=== PATIENT | male | born 1980 | race African-American/Black ===

== ENCOUNTER 2023-06-16 03:03 | Inpatient (IN) | payer OTHER ==
[2023-06-16 03:15] VITALS: BMI 59.1
[2023-06-16 05:21] LABS: MCH 23.3 pg (25.7-33.7); MCHC 31.6 g/dl (32.0-35.9); MEAN CELL VOLUME 73.7 fl (80-96); MEAN PLT VOLUME 8.6 fl (7.5-11.1); PLATELET COUNT 613 10^3/uL (134-434); RBC 4.75 M/mm3 (4.00-5.60); RDW 21.1 % (11.9-15.9); WHITE BLOOD COUNT 21.8 K/mm3 (4.0-10.0)
[2023-06-16 05:24] LABS: EPI CELLS >36 /uL (0-25.1); HYALINE CASTS 3 /uL (0-3.1); PH,URINE 5.5 (5.0-8.0); URINE APPEARANCE CLEAR; URINE BACTERIA 7 /uL (0-1359); URINE BILIRUBIN NEGATIVE (NEGATIVE); URINE COLOR YELLOW; URINE GLUCOSE (UA) NEGATIVE (NEGATIVE); URINE KETONE NEGATIVE (NEGATIVE); URINE LEUK ESTERASE NEGATIVE (NEGATIVE); URINE NITRITE NEGATIVE (NEGATIVE); URINE PROTEIN 2+ (NEGATIVE); URINE RBC 35 /uL (0-23.9); URINE UROBILINOGEN 0.2 mg/dL (0.2-1.0); URINE WBC 39 /uL (0-25.8)
[2023-06-16] MEDS ORDERED: ACETAMINOPHEN 500 MG TABLET (FP) PO ONE (05:33)
[2023-06-16] MEDS ORDERED: ACETAMINOPHEN 325 MG TABLET (FP) ONE (05:39)
[2023-06-16] MEDS ORDERED: PIPERACILLIN/TAZOB 4.5 GM 4.5 GM in DEXTROSE 5%-WATER 100 ML IVPB ONE (06:16)
[2023-06-16] MEDS ORDERED: VANCOMYCIN 1,000 MG in DEXTROSE 5%-WATER - 250 ML IVPB ONE (06:16)
[2023-06-16] MEDS ORDERED: VANCOMYCIN/WATER FOR INJ (PEG) 1,000 MG/200 ML BAG IVPB ONE ×3 (06:20→11:00)
[2023-06-16] MEDS ORDERED: PIPERACILLIN/TAZOB 4.5 GM 4.5 GM/100 ML BAG IVPB ONE (06:20)
[2023-06-16 06:24] LABS: ADD RBC MORPHOLOGY YES
[2023-06-16] MEDS ORDERED: morphine CARPU-JECT 4 MG/1 ML DISP.SYRIN IVPUSH ONE ×2 (06:26→07:17)
[2023-06-16] MEDS ORDERED: morphine SULFATE 4 MG/ML VIAL ONE ×2 (06:28→07:30)
[2023-06-16] MEDS ORDERED: VANCOMYCIN PREMIX 1.75 GM 1,750 MG/350 ML PIGGYBACK IVPB ONE (07:08)
[2023-06-16 07:28] LABS: CHLORIDE 109 mmol/L (98-107); POTASSIUM 4.5 mmol/L (3.5-5.1); SODIUM 141 mmol/L (136-145)
[2023-06-16 07:31] LABS: ALBUMIN 3.3 g/dl (3.4-5.0); ANION GAP 22 MMOL/L (8-16); CALCIUM 8.2 mg/dL (8.5-10.1); CO2 9 mmol/L (21-32); GLUCOSE,RANDOM 103 mg/dL (74-106)
[2023-06-16 07:35] LABS: CREATININE 3.1 mg/dL (0.55-1.3); SGOT/AST 60 U/L (15-37); SGPT/ALT 20 U/L (13-61)
[2023-06-16 07:36] LABS: BILIRUBIN,TOTAL 0.4 mg/dL (0.2-1)
[2023-06-16 07:37] LABS: TOT PROT 8.7 g/dl (6.4-8.2)
[2023-06-16 07:38] LABS: ALK PHOS 124 U/L (45-117)
[2023-06-16 07:41] LABS: BLOOD UREA NITROGEN 115.9 mg/dL (7-18)
[2023-06-16] MEDS ORDERED: CEFEPIME HCL 1 GM VIAL (RESTRICTED TO ID) IVPB SCH (08:15)
[2023-06-16] MEDS ORDERED: HEPARIN NA (PORCINE) 5,000 UNITS/ML 1ML VIAL ONE (08:50)
[2023-06-16] MEDS: SODIUM CHLORIDE 1,000 ML IV SCH (09:00)
[2023-06-16 09:19] LABS: ERYTHROCYTE SEDIMENTATION RATE 94 mm/hr (0-10)
[2023-06-16 09:25] LABS: ANISOCYTOSIS 0; MACROCYTOSIS 0
[2023-06-16] MEDS ORDERED: CEFEPIME 1 GM/100 ML BAG IVPB ONE (09:56)
[2023-06-16] MEDS ORDERED: HEPARIN NA (PORCINE) 5,000 UNITS/ML 1ML VIAL SQ SCH (10:00)
[2023-06-16] MEDS ORDERED: CEFEPIME 1 GM in DEXTROSE 5%-WATER 100 ML IVPB SCH (14:00)
[2023-06-16] MEDS ORDERED: MEROPENEM 1 GM in DEXTROSE 5%-WATER 100 ML IVPB SCH (16:30)
[2023-06-16] MEDS: METOPROLOL TARTRATE 25 MG TABLET (FP) PO SCH ×2 (17:36→22:22)
[2023-06-16] MEDS: oxyCODONE HCL 5 MG TABLET PO PRN (17:42)
[2023-06-16] MEDS ORDERED: ACETAMINOPHEN 1000 MG/100 ML BAG IVPB ONE (22:04)
[2023-06-16] MEDS: APIXABAN 5 MG TABLET PO SCH (22:22)
[2023-06-16] MEDS ORDERED: VANCOMYCIN/WATER FOR INJ (PEG) 1,000 MG/200 ML BAG IVPB SCH (23:00)
[2023-06-17] MEDS: MEROPENEM 1 GM in DEXTROSE 5%-WATER 100 ML IVPB SCH ×2 (04:27→16:36)
[2023-06-17] MEDS: VANCOMYCIN/WATER FOR INJ (PEG) 1,000 MG/200 ML BAG IVPB SCH (08:23)
[2023-06-17 09:45] LABS: CHLORIDE 113 mmol/L (98-107); SODIUM 140 mmol/L (136-145)
[2023-06-17 09:47] LABS: CALCIUM 8.7 mg/dL (8.5-10.1); CO2 16 mmol/L (21-32); GLUCOSE,RANDOM 103 mg/dL (74-106)
[2023-06-17 09:52] LABS: CREATININE 1.6 mg/dL (0.55-1.3)
[2023-06-17] MEDS: amLODIPine BESYLATE 10 MG TABLET (FP) PO SCH (09:58)
[2023-06-17] MEDS: METOPROLOL TARTRATE 25 MG TABLET (FP) PO SCH ×2 (09:58→22:12)
[2023-06-17] MEDS: APIXABAN 5 MG TABLET PO SCH ×2 (09:58→22:12)
[2023-06-17] MEDS: oxyCODONE HCL 5 MG TABLET PO PRN ×3 (09:58→22:11)
[2023-06-17 10:00] LABS: ANION GAP 12 MMOL/L (8-16); BLOOD UREA NITROGEN 86.2 mg/dL (7-18); POTASSIUM 2.8 mmol/L (3.5-5.1)
[2023-06-17] MEDS: KCL 10 MEQ IVPB 10 MEQ/100 ML INFUS.BAG IVPB SCH ×3 (10:55→14:50)
[2023-06-17 15:55] LABS: MAGNESIUM 2.9 mg/dL (1.8-2.4)
[2023-06-17] MEDS ORDERED: POTASSIUM CHLORIDE ORAL LIQUID 20 MEQ/15 ML PO ONE (16:51)
[2023-06-17] MEDS: SODIUM CHLORIDE 0.45%/POT 20 MEQ/1,000 ML INFUS.BAG IV SCH (18:13)
[2023-06-17] MEDS: SODIUM CHLORIDE 1,000 ML IV SCH (19:19)
[2023-06-18] MEDS: MEROPENEM 1 GM in DEXTROSE 5%-WATER 100 ML IVPB SCH ×2 (04:36→17:41)
[2023-06-18] MEDS: oxyCODONE HCL 5 MG TABLET PO PRN ×3 (10:10→23:00)
[2023-06-18] MEDS: METOPROLOL TARTRATE 25 MG TABLET (FP) PO SCH ×2 (10:11→22:09)
[2023-06-18] MEDS: amLODIPine BESYLATE 10 MG TABLET (FP) PO SCH (10:11)
[2023-06-18] MEDS: APIXABAN 5 MG TABLET PO SCH ×2 (10:11→22:09)
[2023-06-18] MEDS: VANCOMYCIN/WATER FOR INJ (PEG) 1,000 MG/200 ML BAG IVPB SCH (10:13)
[2023-06-18] MEDS: SODIUM CHLORIDE 0.45%/POT 20 MEQ/1,000 ML INFUS.BAG IV SCH ×3 (10:16→22:14)
[2023-06-18 11:01] LABS: HEMATOCRIT 28.4 % (35.4-49); HEMOGLOBIN 9.2 GM/dL (11.7-16.9); MCH 22.7 pg (25.7-33.7); MCHC 32.2 g/dl (32.0-35.9); MEAN CELL VOLUME 70.6 fl (80-96); MEAN PLT VOLUME 7.5 fl (7.5-11.1); PLATELET COUNT 587 10^3/uL (134-434); RBC 4.03 M/mm3 (4.00-5.60); RDW 20.3 % (11.9-15.9); WHITE BLOOD COUNT 20.5 K/mm3 (4.0-10.0)
[2023-06-18 11:34] LABS: POTASSIUM 3.1 mmol/L (3.5-5.1)
[2023-06-18 11:48] LABS: CALCIUM 9.5 mg/dL (8.5-10.1)
[2023-06-18 11:51] LABS: BILIRUBIN,TOTAL 0.6 mg/dL (0.2-1); TOT PROT 6.7 g/dl (6.4-8.2)
[2023-06-18 11:55] LABS: ALBUMIN 2.5 g/dl (3.4-5.0); BLOOD UREA NITROGEN 52.1 mg/dL (7-18)
[2023-06-18 12:27] LABS: ANISOCYTOSIS 1+; MACROCYTOSIS 0
[2023-06-18] MEDS: POTASSIUM CHLORIDE TABS 20 MEQ TABLET.ER (FP) PO SCH ×2 (13:03→22:08)
[2023-06-19] MEDS ORDERED: ACETAMINOPHEN 1000 MG/100 ML BAG IVPB ONE (01:58)
[2023-06-19] MEDS: MELATONIN 5 MG TABLETS PO PRN ×2 (02:40→23:10)
[2023-06-19] MEDS: MEROPENEM 1 GM in DEXTROSE 5%-WATER 100 ML IVPB SCH ×2 (03:21→22:32)
[2023-06-19 08:10] LABS: POTASSIUM 3.5 mmol/L (3.5-5.1)
[2023-06-19 08:16] LABS: BLOOD UREA NITROGEN 40.1 mg/dL (7-18); CREATININE 0.9 mg/dL (0.55-1.3)
[2023-06-19 08:17] LABS: ALBUMIN 2.5 g/dl (3.4-5.0); CALCIUM 9.3 mg/dL (8.5-10.1); MAGNESIUM 2.1 mg/dL (1.8-2.4)
[2023-06-19 08:18] LABS: BILIRUBIN,TOTAL 0.3 mg/dL (0.2-1); TOT PROT 6.8 g/dl (6.4-8.2)
[2023-06-19] MEDS: METOPROLOL TARTRATE 25 MG TABLET (FP) PO SCH ×2 (09:23→21:33)
[2023-06-19] MEDS: VANCOMYCIN/WATER FOR INJ (PEG) 1,000 MG/200 ML BAG IVPB SCH (09:23)
[2023-06-19] MEDS: oxyCODONE HCL 5 MG TABLET PO PRN ×2 (09:23→20:51)
[2023-06-19] MEDS: amLODIPine BESYLATE 10 MG TABLET (FP) PO SCH (09:23)
[2023-06-19] MEDS: APIXABAN 5 MG TABLET PO SCH ×2 (09:23→21:33)
[2023-06-19] MEDS ORDERED: oxyCODONE HCL 5 MG TABLET PO ONE (11:27)
[2023-06-19 16:10] LABS: ATYPICAL pANCA <1:20 titer (Neg:<1:20); C-ANCA <1:20 titer (Neg:<1:20)
[2023-06-19] MEDS: SODIUM CHLORIDE 0.45%/POT 20 MEQ/1,000 ML INFUS.BAG IV SCH (22:32)
[2023-06-20] MEDS: oxyCODONE HCL 5 MG TABLET PO PRN ×6 (00:25→22:33)
[2023-06-20] MEDS: MEROPENEM 1 GM in DEXTROSE 5%-WATER 100 ML IVPB SCH ×2 (04:12→17:44)
[2023-06-20] MEDS: APIXABAN 5 MG TABLET PO SCH ×2 (09:37→22:33)
[2023-06-20] MEDS: amLODIPine BESYLATE 10 MG TABLET (FP) PO SCH (09:37)
[2023-06-20] MEDS: METOPROLOL TARTRATE 25 MG TABLET (FP) PO SCH ×2 (09:37→22:33)
[2023-06-20] MEDS: VANCOMYCIN/WATER FOR INJ (PEG) 1,000 MG/200 ML BAG IVPB SCH ×2 (09:38→17:36)
[2023-06-20 13:17] LABS: POTASSIUM 3.8 mmol/L (3.5-5.1)
[2023-06-20 13:19] LABS: CALCIUM 9.6 mg/dL (8.5-10.1)
[2023-06-20 13:20] LABS: ALBUMIN 2.5 g/dl (3.4-5.0); BLOOD UREA NITROGEN 25.2 mg/dL (7-18); MAGNESIUM 1.9 mg/dL (1.8-2.4)
[2023-06-20 13:23] LABS: CREATININE 0.8 mg/dL (0.55-1.3)
[2023-06-20 13:24] LABS: TOT PROT 6.4 g/dl (6.4-8.2)
[2023-06-20 13:25] LABS: BILIRUBIN,TOTAL 0.2 mg/dL (0.2-1)
[2023-06-20] MEDS: MELATONIN 5 MG TABLETS PO PRN (22:34)
[2023-06-21] MEDS: VANCOMYCIN/WATER FOR INJ (PEG) 1,000 MG/200 ML BAG IVPB SCH ×2 (01:42→13:32)
[2023-06-21] MEDS: SODIUM CHLORIDE 0.45%/POT 20 MEQ/1,000 ML INFUS.BAG IV SCH ×3 (04:32→18:48)
[2023-06-21] MEDS: MEROPENEM 1 GM in DEXTROSE 5%-WATER 100 ML IVPB SCH (04:42)
[2023-06-21 05:23] VITALS: RESP 18
[2023-06-21] MEDS: oxyCODONE HCL 5 MG TABLET PO PRN ×4 (06:17→18:04)
[2023-06-21 08:05] LABS: POTASSIUM 3.9 mmol/L (3.5-5.1)
[2023-06-21 08:08] LABS: CALCIUM 9.3 mg/dL (8.5-10.1)
[2023-06-21 08:09] LABS: ALBUMIN 2.5 g/dl (3.4-5.0); MAGNESIUM 1.7 mg/dL (1.8-2.4)
[2023-06-21 08:12] LABS: CREATININE 0.8 mg/dL (0.55-1.3)
[2023-06-21 08:13] LABS: BILIRUBIN,TOTAL 0.3 mg/dL (0.2-1)
[2023-06-21 08:14] LABS: TOT PROT 6.7 g/dl (6.4-8.2)
[2023-06-21] MEDS: amLODIPine BESYLATE 10 MG TABLET (FP) PO SCH (09:51)
[2023-06-21] MEDS: APIXABAN 5 MG TABLET PO SCH (09:51)
[2023-06-21] MEDS: METOPROLOL TARTRATE 25 MG TABLET (FP) PO SCH (09:51)
[2023-06-21 14:30] VITALS: BP 142/90; PULSE 82; TEMP 98.4
[2023-06-21] MEDS ORDERED: MAGNESIUM OXIDE 400 MG TABLET (FP) PO ONE (15:29)
[2023-06-21] MEDS ORDERED: GENTAMICIN SO4 0.1% TOP CREAM 15 GM/TUBE TP SCH (22:00)
[2023-06-22] MEDS ORDERED: ERTAPENEM SODIUM 1 GM in SODIUM CHLORIDE 50 ML IVPB SCH (10:00)
== END 2023-06-21 20:57 | DRG 197 ==
LOC: JER 03:03 → JERBED 06:39 → J8W 12:00
PROVIDERS: ADMIT Internal Medicine; ATTEND Nurse Practitioner Acute Care
PROC: 02HV33Z Insertion of Infusion Device into Superior Vena Cava, Percutaneous Approach (ICD-10-PCS; principal; 2023-06-20)
PROC: B548ZZA Ultrasonography of Superior Vena Cava, Guidance (ICD-10-PCS; 2023-06-20)
DX: I83.018 Varicose veins of right lower extremity with ulcer other part of lower leg (principal); N17.9 Acute kidney failure, unspecified; E87.20 Acidosis, unspecified; E66.01 Morbid (severe) obesity due to excess calories; I89.0 Lymphedema, not elsewhere classified; I83.028 Varicose veins of left lower extremity with ulcer other part of lower leg; L97.819 Non-pressure chronic ulcer of other part of right lower leg with unspecified severity; L97.829 Non-pressure chronic ulcer of other part of left lower leg with unspecified severity; R31.29 Other microscopic hematuria; R78.81 Bacteremia; Z68.43 Body mass index [BMI] 50.0-59.9, adult; E87.6 Hypokalemia; I11.0 Hypertensive heart disease with heart failure; I50.9 Heart failure, unspecified; Z86.718 Personal history of other venous thrombosis and embolism; Z79.01 Long term (current) use of anticoagulants; G62.9 Polyneuropathy, unspecified; G47.33 Obstructive sleep apnea (adult) (pediatric)
CPT/HCPCS: 36415; 36569; 76775-TC; 77001-TC-FY; 80048; 80053; 81003; 82570; 83520; 83735; 83930; 84156; 84300; 85025; 85651; 86140; 86160; 86256; 86803; 87040; 87070; 87077; 87086; 87186; 87205; 87340; 87517; 87635; 93970-TC; 94660; 97116-GP; 97161-GP; 99285-25; C1751; G0480; J1644; J3480